=== PATIENT | male | born 1950 | race Caucasian/White ===

== ENCOUNTER 2017-03-02 11:24 | Day surgery (SDC) | payer OTHER ==
[2017-02-27 09:37] VITALS: BMI 26.3
[2017-03-02] MEDS ORDERED: PROPOFOL 20 ML ONE (11:42)
[2017-03-02 13:00] VITALS: TEMP 97.8
[2017-03-02 13:15] VITALS: BP 109/64; PULSE 61
== END 2017-03-02 13:16 | disposition home or self-care (01) ==
LOC: FASU-ENDO 11:24
PROVIDERS: ATTEND Internal Medicine Gastroenterology
PROC: 0DJD8ZZ Inspection of Lower Intestinal Tract, Via Natural or Artificial Opening Endoscopic (ICD-10-PCS; principal; 2017-03-02 12:16)
DX: Z86.010 Personal history of colon polyps (principal)